=== PATIENT | male | born 1970 | race Caucasian/White ===

== ENCOUNTER 2017-07-12 09:22 | Emergency (ER) | payer BC, OTHER ==
[~2017-07-12] VITALS: Ht 175.3 cm; Wt 81.6 kg
[~2017-07-12 09:22] MED LIST: ASPI81TA31 PO; OFLO5DRO5 RIGHTEYE
[2017-07-12] MEDS ORDERED: IV NORMAL SALINE 1000 ML BAG IV ONE (10:00)
[2017-07-12] MEDS ORDERED: KETOROLAC TROMETHAMINE 30 MG INJ IVP ONE (10:00)
[2017-07-12] MEDS ORDERED: ONDANSETRON 4 MG/2 ML VIAL IV ONE (10:00)
--- NOTE | 2017-07-12 10:28 | NUR ---
Pt c/o left flank x 1 day, 04/21 currently, dull and sharp. Pt denies CP, SOB, dizziness, n/v, no other complaints, no distress noted. IV 20g left hand, Blood drawn and given to lab systems analyst.
[2017-07-12 10:29] LABS: BASOPHILS % (AUTO) 0.4 % (0.0-2.0); EOSINOPHILS # (AUTO) 0.1 K/uL (0.0-0.7); EOSINOPHILS % (AUTO) 1.4 % (0.0-7.0); HEMATOCRIT 46.7 % (40-50); HEMOGLOBIN 15.9 G/DL (14.0-18.0); LYMPHOCYTES # (AUTO) 2.1 K/UL (0.8-4.8); LYMPHOCYTES % (AUTO) 30.9 % (20.5-51.5); MEAN CORPUSCULAR HEMOGLOBIN 29.1 UUG (27.0-31.0); MEAN CORPUSCULAR HGB CONC 34 g/dL (32.0-37.0); MEAN CORPUSCULAR VOLUME 85.3 FL (82.0-92.0); MONOCYTES # (AUTO) 0.6 K/UL (0.1-1.30); MONOCYTES % (AUTO) 8.2 % (0.0-11.0); NEUTROPHILS # (AUTO) 4.1 K/UL (1.8-8.9); NEUTROPHILS % (AUTO) 59.1 % (38.5-71.5); PLATELET COUNT (AUTO) 274 K/UL (150-450); RED BLOOD CELL COUNT(AUTO) 5.47 MIL/UL (4.7-6.1); WHITE BLOOD COUNT (AUTO) 6.9 K/UL (4.0-11.2)
[2017-07-12] MEDS ORDERED: ONDANSETRON 4 MG/2 ML VIAL ONE (10:34)
[2017-07-12] MEDS ORDERED: KETOROLAC TROMETHAMINE 30 MG INJ ONE (10:34)
[2017-07-12 10:46] LABS: CREATININE 0.9 mg/dL (0.6-1.3)
[2017-07-12 11:55] LABS: *BILIRUBIN,URIN NEGATIVE (NEGATIVE); *BLOOD, URINE NEGATIVE (NEGATIVE); *CLARITY,URINE CLEAR (CLEAR); *COLOR,URINE YELLOW (YELLOW); *KETONES,URINE NEGATIVE (NEGATIVE); *PROTEIN,URINE NEGATIVE (NEGATIVE); *UROBILINOGEN,URINE 0.2 E.U./dl (NORMAL); LEUKOCYTE ESTERASE ,URINE NEGATIVE (NEGATIVE); NITRITE, URINE NEGATIVE (NEGATIVE); PH,URINE 7.5 (5.0-8.0); UGLUCOSE NEGATIVE (NEGATIVE)
[2017-07-12 12:04] LABS: WBC,URINE 0-3 /HPF (0-3)
[2017-07-12 12:05] LABS: SQUAMOUS EPITHELIAL CELL,UR FEW /HPF (NONE SEEN); URINE AMORPHOUS PHOSPHATES FEW /HPF
--- NOTE | 2017-07-12 12:40 | NUR ---
Removed IV intact, site okay, bandaged. Gave pt RX and d/c instructions, verbalized understanding.
== END 2017-07-12 12:41 | disposition home or self-care (01) ==
LOC: ER 09:22
DX: K57.30 Diverticulosis of large intestine without perforation or abscess without bleeding (principal); M54.5 Low back pain; Z87.442 Personal history of urinary calculi; Z79.82 Long term (current) use of aspirin
CPT/HCPCS: 36415; 85025; A4663; J1885; J2405; J7030

== ENCOUNTER 2017-09-06 22:01 | Emergency (ER) | payer BC ==
[~2017-09-06] VITALS: Ht 172.7 cm; Wt 77.1 kg
--- NOTE | 2017-09-06 22:25 | NUR ---
Pt is received alert, responsive as he came from home with c/o chest pain. His care continue while monitor.
[2017-09-06] MEDS ORDERED: PANTOPRAZOLE SODIUM 40 MG VIAL IV ONE (23:30)
[2017-09-06] MEDS ORDERED: ONDANSETRON 4 MG/2 ML VIAL IV ONE (23:30)
[2017-09-06] MEDS ORDERED: IV NORMAL SALINE 1000 ML BAG IV ONE (23:30)
[2017-09-06 23:51] LABS: BASOPHILS % (AUTO) 0.7 % (0.0-2.0); EOSINOPHILS # (AUTO) 0.1 K/uL (0.0-0.7); EOSINOPHILS % (AUTO) 1.4 % (0.0-7.0); HEMATOCRIT 44.5 % (36.7-47.1); HEMOGLOBIN 15.5 g/dL (12.5-16.3); LYMPHOCYTES # (AUTO) 1.3 K/uL (20.0-40.0); LYMPHOCYTES % (AUTO) 25.1 % (20.5-51.5); MEAN CORPUSCULAR HGB CONC 35 g/dL (32.5-36.3); MEAN CORPUSCULAR VOLUME 86.1 fL (73.0-96.2); MONOCYTES # (AUTO) 0.6 K/uL (2.0-10.0); NEUTROPHILS # (AUTO) 3.3 K/uL (1.8-8.9); NEUTROPHILS % (AUTO) 61.8 % (38.5-71.5); PLATELET COUNT (AUTO) 251 K/uL (152-348); RED BLOOD CELL COUNT(AUTO) 5.16 MIL/uL (4.06-5.63); WHITE BLOOD COUNT (AUTO) 5.4 K/uL (3.6-10.2)
[2017-09-06] MEDS ORDERED: ONDANSETRON 4 MG/2 ML VIAL ONE (23:51)
[2017-09-06] MEDS ORDERED: PANTOPRAZOLE SODIUM 40 MG VIAL ONE (23:51)
[2017-09-07 00:07] LABS: BILIRUBIN,DIRECT 0.1 mg/dL (0.0-0.2); BILIRUBIN,TOTAL 0.4 mg/dL (0.2-1.0); POTASSIUM 4.2 mmol/L (3.5-5.1); TOTAL PROTEIN, SERUM 7.2 g/dL (6.4-8.2)
--- NOTE | 2017-09-07 00:15 | NUR ---
Pt remain aert, responsive as IVf 0.9NS infusing as ordered , His care continue.
--- NOTE | 2017-09-07 00:30 | NUR ---
Pt remain alert, responsivea as he is been Medicated as ordered with IVF 0.9ns therapy in progress. His care continue while monitor.
[2017-09-07 00:47] LABS: *BILIRUBIN,URIN NEGATIVE (NEGATIVE); *BLOOD, URINE NEGATIVE (NEGATIVE); *CLARITY,URINE SLIGHTLY CLOUDY (CLEAR); *COLOR,URINE YELLOW (YELLOW); *KETONES,URINE TRACE (NEGATIVE); *PROTEIN,URINE NEGATIVE (NEGATIVE); *UROBILINOGEN,URINE 0.2 E.U./dl (NORMAL); LEUKOCYTE ESTERASE ,URINE NEGATIVE (NEGATIVE); NITRITE, URINE NEGATIVE (NEGATIVE); UGLUCOSE NEGATIVE (NEGATIVE)
[2017-09-07 01:05] LABS: BACTERIA,URINE NONE SEEN /HPF (NONE SEEN); MUCUS,URINE FEW /LPF (0-FEW); RBC,URINE NONE SEEN /HPF (0-3); SQUAMOUS EPITHELIAL CELL,UR FEW /HPF (NONE SEEN); URINE AMORPHOUS PHOSPHATES MODERATE /HPF; WBC,URINE 0-3 /HPF (0-3)
--- NOTE | 2017-09-07 02:15 | NUR ---
Pt is resting in bed as a repeat Off EKG and Lab work TROPONIN will be done as ordered as his care continue while monitor.
--- NOTE | 2017-09-07 03:19 | NUR ---
Pt remain alert, responsive as 2nd Troponin came in [place] and a repeat off EKG is Normal Sinus Rhythm. His care continue.
--- NOTE | 2017-09-07 03:42 | NUR ---
Pt is been discharged to home with all discharge instructions and prescriptions given as ordered, pt is stable.
[2017-09-07 03:49] VITALS: BP 122/87
== END 2017-09-07 03:45 | disposition home or self-care (01) ==
LOC: ER 22:02
DX: H00.019 Hordeolum externum unspecified eye, unspecified eyelid (principal); R07.9 Chest pain, unspecified
CPT/HCPCS: 36415; 70030-TC; 71010; 83690; 85025; 93005; A4663; C9113; J2405

== ENCOUNTER 2017-11-18 19:35 | Emergency (ER) | payer OTHER ==
[~2017-11-18] VITALS: Ht 172.7 cm; Wt 77.1 kg
--- NOTE | 2017-11-18 19:48 | NUR ---
Assumed care of patient. patient in bed, no acute distress. Patient states he has left upper chest and upper ABD pain x 1 day. Patient is AAOx4. Will continue to monitor patient.
[2017-11-18] MEDS ORDERED: ASPI81TA31 PO (19:51)
--- NOTE | 2017-11-18 19:52 | NUR ---
GLENNA JARQUIN at bedside for patient evaluation.
[2017-11-18] MEDS ORDERED: OFLO5DRO5 RIGHTEYE (19:53)
--- NOTE | 2017-11-18 20:02 | NUR ---
Patient discharged to home in stable conditon. Written and verbal after care instructions given. Patient verbalizes understanding of instructions. Ambulated from ER with stable gait. Peripheral IV removed prior to d/c. All belongings with patient.
[2017-11-18 20:05] VITALS: BP 128/81
== END 2017-11-18 20:06 | disposition home or self-care (01) ==
LOC: ER 19:38 → MERGE 19:38 → ER 20:06
DX: R07.89 Other chest pain (principal); F41.9 Anxiety disorder, unspecified; Z79.82 Long term (current) use of aspirin; Z79.2 Long term (current) use of antibiotics
CPT/HCPCS: A4663

== ENCOUNTER 2018-04-15 22:16 | Emergency (ER) | payer BC, OTHER ==
[~2018-04-15] VITALS: Ht 175.3 cm; Wt 77.1 kg
--- NOTE | 2018-04-15 22:40 | NUR ---
DR REFUGIO MANZANARES MD AT BEDSIDE FOR MSE.
--- NOTE | 2018-04-15 23:00 | NUR ---
RADIOLOGY AT BEDSIDE FOR XRAY.
[2018-04-15] MEDS ORDERED: MORPHINE SULFATE 4 MG/1 ML DISP.SYRIN IV ONE (23:15)
[2018-04-15 23:17] LABS: BASOPHILS % (AUTO) 0.6 % (0.0-2.0); EOSINOPHILS # (AUTO) 0.1 K/uL (0.0-0.7); EOSINOPHILS % (AUTO) 1.5 % (0.0-7.0); HEMATOCRIT 43.5 % (36.7-47.1); HEMOGLOBIN 15.4 g/dL (12.5-16.3); LYMPHOCYTES # (AUTO) 2.1 K/uL (20.0-40.0); MEAN CORPUSCULAR HEMOGLOBIN 30.2 uug (23.8-33.4); MEAN CORPUSCULAR HGB CONC 35 g/dL (32.5-36.3); MEAN CORPUSCULAR VOLUME 85.3 fL (73.0-96.2); MONOCYTES # (AUTO) 0.5 K/uL (2.0-10.0); MONOCYTES % (AUTO) 8.8 % (0.0-11.0); NEUTROPHILS % (AUTO) 53.1 % (38.5-71.5); PLATELET COUNT (AUTO) 259 K/uL (152-348); WHITE BLOOD COUNT (AUTO) 5.7 K/uL (3.6-10.2)
[2018-04-15] MEDS ORDERED: MORPHINE SULFATE 4 MG/1 ML DISP.SYRIN ONE (23:24)
[2018-04-15 23:32] LABS: BILIRUBIN,DIRECT 0.1 mg/dL (0.0-0.2); BILIRUBIN,TOTAL 0.4 mg/dL (0.2-1.0); TOTAL PROTEIN, SERUM 7.2 g/dL (6.4-8.2)
--- NOTE | 2018-04-15 23:36 | NUR ---
PT RESTING IN BED W/ EYES CLOSED. BREATHING EVEN AND UNLABORED. NO ACUTE DISTRESS NOTED.
--- NOTE | 2018-04-16 00:07 | NUR ---
DR HUFF AT BEDSIDE FOR REEVAL
--- NOTE | 2018-04-16 03:20 | NUR ---
Patient discharged to home in stable conditon. Written and verbal after care instructions given. Patient verbalizes understanding of instructions. IV removed, w/ catheter intact. Pressure applied. No bleeding noted at site. Pt ambulated from ER w/ steady gait. Denies CP, SOB, STANLEY. No distress noted. Pt took all personal belongings.
[2018-04-16 03:22] VITALS: BP 112/79
== END 2018-04-16 03:23 | disposition home or self-care (01) ==
LOC: ER 22:17
DX: R07.89 Other chest pain (principal); R51 Headache; I10 Essential (primary) hypertension; E78.00 Pure hypercholesterolemia, unspecified
CPT/HCPCS: 36415; 70030-TC; 71045; 85025; 93005; A4663; J2270

== ENCOUNTER 2020-06-18 01:56 | Emergency (ER) | payer OTHER ==
[~2020-06-18] VITALS: Ht 175.3 cm; Wt 79.4 kg
[2020-06-18] MEDS: ASPIRIN 325 MG TABLET PO ONE (02:34)
[2020-06-18] MEDS: NITROGLYCERIN 0.4 MG/TAB BOTTLE SL ONE (02:34)
[2020-06-18] MEDS ORDERED: NITROGLYCERIN 0.4 MG/TAB BOTTLE SL ONE (02:36)
[2020-06-18] MEDS ORDERED: ASPIRIN 325 MG TABLET ONE (02:36)
[2020-06-18] MEDS: IV NORMAL SALINE 1000 ML BAG IV ONE (02:49)
[2020-06-18 02:54] LABS: BASOPHILS % (AUTO) 0.6 % (0.0-2.0); EOSINOPHILS # (AUTO) 0.1 K/uL (0.0-0.7); EOSINOPHILS % (AUTO) 1.4 % (0.0-7.0); HEMATOCRIT 44.5 % (36.7-47.1); HEMOGLOBIN 15.5 g/dL (12.5-16.3); LYMPHOCYTES # (AUTO) 1.4 K/uL (20.0-40.0); LYMPHOCYTES % (AUTO) 19.2 % (20.5-51.5); MEAN CORPUSCULAR HEMOGLOBIN 29.6 uug (23.8-33.4); MEAN CORPUSCULAR HGB CONC 35 g/dL (32.5-36.3); MEAN CORPUSCULAR VOLUME 84.8 fL (73.0-96.2); MONOCYTES # (AUTO) 0.5 K/uL (2.0-10.0); MONOCYTES % (AUTO) 7.3 % (0.0-11.0); NEUTROPHILS # (AUTO) 5.2 K/uL (1.8-8.9); NEUTROPHILS % (AUTO) 71.5 % (38.5-71.5); PLATELET COUNT (AUTO) 251 K/uL (152-348); RED BLOOD CELL COUNT(AUTO) 5.25 MIL/uL (4.06-5.63); WHITE BLOOD COUNT (AUTO) 7.3 K/uL (3.6-10.2)
[2020-06-18 03:04] LABS: CREATININE 0.9 mg/dL (0.6-1.3); POTASSIUM 3.6 mmol/L (3.5-5.1)
[2020-06-18 03:10] LABS: BILIRUBIN,DIRECT 0.2 mg/dL (0.0-0.2); BILIRUBIN,TOTAL 0.5 mg/dL (0.2-1.0); TOTAL PROTEIN, SERUM 7.6 g/dL (6.4-8.2)
--- NOTE | 2020-06-18 03:47 | NUR ---
Patient discharged to home in stable condition. Written and verbal after care instructions given. Patient verbalizes understanding of instructions. Stressed follow up or return to ER for worsening s/s. Ambulated from ER with stable gait. All belongings with patient. PIV removed prior to d/c
[2020-06-18 03:48] VITALS: BP 124/78
== END 2020-06-18 03:48 | disposition home or self-care (01) ==
LOC: ER 01:58
DX: R07.89 Other chest pain (principal); Z82.49 Family history of ischemic heart disease and other diseases of the circulatory system; I10 Essential (primary) hypertension; E78.00 Pure hypercholesterolemia, unspecified; F10.20 Alcohol dependence, uncomplicated; Y90.4 Blood alcohol level of 80-99 mg/100 ml; Z79.82 Long term (current) use of aspirin; Z79.899 Other long term (current) drug therapy
CPT/HCPCS: 36415; 70030-TC; 71045; 85025; 85730; 93005; A4663; J7030

== ENCOUNTER 2021-03-12 00:39 | Emergency (ER) | payer MEDICAID, OTHER ==
[~2021-03-12] VITALS: Ht 175.3 cm; Wt 77.1 kg
--- NOTE | 2021-03-12 00:50 | NUR ---
Dr. Subramanian at bedside for MSE.
--- NOTE | 2021-03-12 00:53 | NUR ---
Patient walked in from home with c/o chets pain on and off since noon yesterday, also c/o palpitations and vomiting yesterday. /10 pressure like pain at this time. Placed on monitor and pulse OX, EKG done, blood drawn and sent to lab.
[2021-03-12] MEDS ORDERED: ASPIRIN 81 MG TAB.CHEW PO ONE (01:00)
[2021-03-12 01:03] LABS: HEMATOCRIT 43.3 % (36.7-47.1); MEAN CORPUSCULAR HEMOGLOBIN 29.5 uug (23.8-33.4); MEAN CORPUSCULAR VOLUME 86.5 fL (73.0-96.2); PLATELET COUNT (AUTO) 245 K/uL (152-348)
[2021-03-12] MEDS ORDERED: ASPIRIN 81 MG TAB.CHEW ONE (01:04)
[2021-03-12 01:12] LABS: CREATININE 0.8 mg/dL (0.6-1.3); POTASSIUM 3.6 mmol/L (3.5-5.1)
[2021-03-12] MEDS ORDERED: CEFEPIME HCL 1 G VIAL ONE (01:42)
--- NOTE | 2021-03-12 02:00 | NUR ---
Paged Dr. Lerner at this time, awaiting call back.
--- NOTE | 2021-03-12 02:16 | NUR ---
Dr. Lerner accepted patient to [facility].
--- NOTE | 2021-03-12 04:37 | NUR ---
Patient does not wish to proceed with medical care recommended by Dr. Subramanian. Patient given information related to possible complications, up to and including , which could occur as a result of leaving the hospital at this time. Patient verbalizes understanding of risks involved due to leaving against medical advice. Patient has signed AMA form.
== END 2021-03-12 04:58 | disposition left against medical advice (07) ==
LOC: ER 00:41
DX: R07.9 Chest pain, unspecified (principal); I10 Essential (primary) hypertension; E78.5 Hyperlipidemia, unspecified; R11.2 Nausea with vomiting, unspecified; Z82.49 Family history of ischemic heart disease and other diseases of the circulatory system; Z79.82 Long term (current) use of aspirin; Z79.899 Other long term (current) drug therapy; Z20.822 Contact with and (suspected) exposure to COVID-19
CPT/HCPCS: 36415; 70030-TC; 71045; 85025; 85730; A4663; J0692; J7060

== ENCOUNTER 2022-05-04 16:36 | Emergency (ER) | payer MEDICAID ==
[~2022-05-04] VITALS: Ht 175.3 cm; Wt 79.4 kg
--- NOTE | 2022-05-04 17:09 | NUR ---
Pt c/o fatigue. Skin very warm to touch. Speaking in full sentences. No distress. Placed on o2 via n/c.
[2022-05-04 17:25] LABS: HEMATOCRIT 45.5 % (36.7-47.1); MEAN CORPUSCULAR HEMOGLOBIN 30.6 uug (23.8-33.4); MEAN CORPUSCULAR VOLUME 89.4 fL (73.0-96.2); PLATELET COUNT (AUTO) 240 K/uL (152-348)
[2022-05-04 17:33] LABS: CARBON DIOXIDE 24 mmol/L (21-32); CHLORIDE 101 mmol/L (98-107); CREATININE 0.9 mg/dL (0.6-1.3); GLUCOSE 126 mg/dL (74-106); POTASSIUM 3.4 mmol/L (3.5-5.1); UREA NITROGEN, BLOOD 9 mg/dL (7-18)
--- NOTE | 2022-05-04 19:15 | NUR ---
OBTAINED REPORT FROM OUT GOING RN , PATIENT ALERT AND O X [address] WITHOUT DISTRESS. VSS.
--- NOTE | 2022-05-04 19:25 | NUR ---
report given to Briana
--- NOTE | 2022-05-04 20:10 | NUR ---
Recieved transfer infor from admit shipping clerk packing. Patient will be going to [facility] room 612B. Dr Lu is the accepting MD. Call for report is .
--- NOTE | 2022-05-04 20:36 | NUR ---
Called [facility] ambulance to transport patient to [facility]. ETA is 1hr.
--- NOTE | 2022-05-04 21:09 | NUR ---
NOW NOTIFIED BY CHARGE NURSE THAT THE PATIENT WILL BE TRANSFER TO [facility] RECEIVING PHYSICIAN
[2022-05-04] MEDS ORDERED: POTASSIUM BICARBONATE/CIT AC 25 MEQ TABLET.EFF PO ONE (21:15)
--- NOTE | 2022-05-04 21:16 | NUR ---
NOTIFIED DR. TREVIÑO THAT THE PATIENT'S POTASSIUM IS 3.4 AND NEW ORDER PENDING FOR POTASSIUM PENDING
[2022-05-04] MEDS ORDERED: POTASSIUM BICARBONATE/CIT AC 25 MEQ TABLET.EFF ONE (21:27)
--- NOTE | 2022-05-04 21:41 | NUR ---
PATIENT REFUSING TO BE TRANSFER AND WANTS TO BE DISCHARGE HOME.NOTIFY DR. TREVIÑO.
[2022-05-04] MEDS ORDERED: CHLO25CA22 PO (22:05)
--- NOTE | 2022-05-04 22:18 | NUR ---
DISCUSSED AND GIVE PATIENT DISCHARGE INSTRUCTIONS AND F/U APPT AND PATIENT VERBALIZED UNDERSTANDING. HE VERBALIZED UNDERSTADING, SL DISCONT WITH CATH INTACT.
== END 2022-05-04 22:30 | disposition left against medical advice (07) ==
LOC: ER 16:37
DX: R07.9 Chest pain, unspecified (principal); I10 Essential (primary) hypertension; R06.00 Dyspnea, unspecified; Z20.822 Contact with and (suspected) exposure to COVID-19; Z53.29 Procedure and treatment not carried out because of patient's decision for other reasons; F17.210 Nicotine dependence, cigarettes, uncomplicated; Z79.82 Long term (current) use of aspirin; Z86.79 Personal history of other diseases of the circulatory system; E78.5 Hyperlipidemia, unspecified; F10.20 Alcohol dependence, uncomplicated
CPT/HCPCS: 36415; 71045; 84484; 85025; 93005; A4663; J7040

== ENCOUNTER 2022-10-18 23:15 | Emergency (ER) | payer MEDICAID ==
[~2022-10-18] VITALS: Ht 172.7 cm; Wt 79.4 kg
[~2022-10-18 23:15] MED LIST changes: +CHLO25CA22 PO
--- NOTE | 2022-10-18 23:50 | NUR ---
Dr. Pierce evaluated patient at bedside. MSE in progress.
[2022-10-19 01:01] LABS: HEMATOCRIT 46.5 % (36.7-47.1); MEAN CORPUSCULAR HEMOGLOBIN 30.7 uug (23.8-33.4); MEAN CORPUSCULAR VOLUME 89.7 fL (73.0-96.2); PLATELET COUNT (AUTO) 272 K/uL (152-348)
[2022-10-19 01:09] LABS: CARBON DIOXIDE 27 mmol/L (21-32); CHLORIDE 102 mmol/L (98-107); CREATININE 0.9 mg/dL (0.6-1.3); GLUCOSE 125 mg/dL (74-106); POTASSIUM 3.6 mmol/L (3.5-5.1); UREA NITROGEN, BLOOD 14 mg/dL (7-18)
[2022-10-19] MEDS ORDERED: HYDR25SU33 RC (02:04)
--- NOTE | 2022-10-19 02:22 | NUR ---
Patient discharged to home in stable condition. Written and verbal after care instructions given. Patient verbalizes understanding of instructions. Stressed follow up or return to ER for worsening s/s.
[2022-10-19 05:48] VITALS: BP 115/85
== END 2022-10-19 02:22 | disposition home or self-care (01) ==
LOC: ER 23:34
DX: R07.9 Chest pain, unspecified (principal); K64.4 Residual hemorrhoidal skin tags; F10.20 Alcohol dependence, uncomplicated; I10 Essential (primary) hypertension; E78.5 Hyperlipidemia, unspecified; F17.210 Nicotine dependence, cigarettes, uncomplicated; Z82.49 Family history of ischemic heart disease and other diseases of the circulatory system; Z79.82 Long term (current) use of aspirin
CPT/HCPCS: 36415; 71045; 83735; 84484; 85025; 93005; A4663

== ENCOUNTER 2023-08-31 19:34 | Emergency (ER) | payer MEDICAID ==
[~2023-08-31] VITALS: Ht 175.3 cm; Wt 86.2 kg
[~2023-08-31 19:34] MED LIST changes: +HYDR25SU33 RC
[2023-08-31 20:01] VITALS: O2SAT 98
[2023-08-31 21:51] LABS: *BILIRUBIN,URIN NEGATIVE (NEGATIVE); *BLOOD, URINE NEGATIVE (NEGATIVE); *CLARITY,URINE CLEAR (CLEAR); *COLOR,URINE YELLOW (YELLOW); *KETONES,URINE TRACE (NEGATIVE); *PROTEIN,URINE NEGATIVE (NEGATIVE); LEUKOCYTE ESTERASE ,URINE NEGATIVE (NEGATIVE); NITRITE, URINE NEGATIVE (NEGATIVE); UGLUCOSE NEGATIVE (NEGATIVE)
== END 2023-08-31 23:30 | disposition left against medical advice (07) ==
LOC: ER 19:35
DX: R10.32 Left lower quadrant pain (principal); Z53.21 Procedure and treatment not carried out due to patient leaving prior to being seen by health care provider
CPT/HCPCS: A4606; A4663